=== PATIENT | male | born 1955 | race Caucasian/White ===

== ENCOUNTER → 2016-03-01 | Outpatient (CLI) | payer BC ==
[2016-03-01 17:39] LABS: Blood Urea Nitrogen 22 mg/dL (9-20); Non-African American GFR(MDRD) >60 (>60 ml/min/1.73 sqM)
== END | disposition home or self-care (01) ==
LOC: LABWHC1 17:02
PROVIDERS: ATTEND Physical Medicine & Rehabilitation
DX: Z01.812 Encounter for preprocedural laboratory examination (principal); M54.5 Low back pain; M54.16 Radiculopathy, lumbar region; M48.06 Spinal stenosis, lumbar region; Z98.890 Other specified postprocedural states; Z79.02 Long term (current) use of antithrombotics/antiplatelets; Z95.5 Presence of coronary angioplasty implant and graft
CPT/HCPCS: 36415; 82565; 84520

== ENCOUNTER 2017-08-10 10:24 | Day surgery (SDC) | payer BC ==
[2017-08-04 15:57] VITALS: BMI 27.0
[2017-08-10] MEDS ORDERED: LACTATED RINGERS 1,000 ML IV SCH (11:49)
[2017-08-10] MEDS ORDERED: LIDOCAINE 1% 20 ML VIAL (10MG/ML) FOR IV START INTRADERMA ONE (12:10)
[2017-08-10 12:12] VITALS: RESP 16; TEMP 97.9
[2017-08-10] MEDS ORDERED: PROPOFOL 10 MG/ML 20 ML VIAL IV ONE (12:32)
--- NOTE | 2017-08-10 12:51 | P.PCN ---
Date of Procedure: 08/10/17 Procedure(s) Performed: BRIEF HISTORY: Patient is a 62-year-old pleasant male, scheduled for an elective colonoscopy as a part of screening for colorectal neoplasia. PROCEDURE PERFORMED: Colonoscopy. PREOPERATIVE DIAGNOSIS: Screening for colon cancer. IV sedation per Anesthesia. PROCEDURE: After informed consent was obtained, the patient, was brought into the endoscopy unit. IV sedation was administered by Anesthesia under continuous monitoring. Digital rectal examination was normal. Initially the Olympus CF- 160 flexible video colonoscope was then inserted in the rectum, gradually advanced into the cecum without any difficulty. Careful examination was performed as the scope was gradually being withdrawn. Ileocecal valve and the appendiceal orifice were visualized and appeared normal. Prep was excellent. Mucosa of the cecum, ascending colon, transverse colon, descending colon, sigmoid colon, and rectum appeared normal. Retroflexion was performed in the rectum and no lesions were seen. The patient tolerated the procedure well. IMPRESSION: Normal-appearing colon from rectum to cecum with no evidence of colorectal neoplasia . RECOMMENDATIONS: Findings of this examination were discussed with the patient is well as his family. He was advised to have a repeat screening colonoscopy in 10 years.
[2017-08-10 13:15] VITALS: BP 130/80; PULSE 50
== END 2017-08-10 13:30 | disposition home or self-care (01) ==
LOC: ORWHC2ENDO 10:24
PROVIDERS: ATTEND Internal Medicine Gastroenterology
DX: Z12.11 Encounter for screening for malignant neoplasm of colon (principal); I25.10 Atherosclerotic heart disease of native coronary artery without angina pectoris; I10 Essential (primary) hypertension; E78.5 Hyperlipidemia, unspecified; I25.2 Old myocardial infarction; Z95.5 Presence of coronary angioplasty implant and graft; Z79.01 Long term (current) use of anticoagulants; Z79.82 Long term (current) use of aspirin; Z79.899 Other long term (current) drug therapy
CPT/HCPCS: J2704; G0121; 45378

== ENCOUNTER → 2018-02-21 | Outpatient (CLI) | payer BC ==
[2018-02-21 17:32] LABS: Albumin/Globulin Ratio 1.74 (1.20-2.10); Anion Gap 7.6 mmol/L (4.00-12.00); Calcium 8.9 mg/dL (8.7-10.3); Carbon Dioxide 26.4 mmol/L (21.6-31.8); Globulin 2.3 g/dL (1.6-3.3); LDL Cholesterol,Calculated 60.2 mg/dL (0.0-131.0); Potassium 5.1 mmol/L (3.5-5.5); Total Bilirubin 0.7 mg/dL (0.2-1.2); Total Protein 6.3 g/dL (6.2-8.2); VLDL Calculation 52.8 mg/dL (5.00-40.00)
== END | disposition home or self-care (01) ==
LOC: LABWHC1 10:13
PROVIDERS: ATTEND Internal Medicine Interventional Cardiology
DX: E78.2 Mixed hyperlipidemia (principal)
CPT/HCPCS: 36415; 80053; 80061

== ENCOUNTER → 2018-11-01 | Outpatient (CLI) | payer MEDICARE, BC ==
[2018-11-01 16:51] LABS: ALT 69 U/L (10-49); AST 43 U/L (14-35); African American GFR (CKD) 103.5 (60.0-200.0); Albumin/Globulin Ratio 1.87 (1.60-3.17); Alkaline Phosphatase 88 U/L (41-126); BUN/Creat Ratio 21.11 Ratio (12.00-20.00); Calcium 9.4 mg/dL (8.7-10.3); Carbon Dioxide 26.6 mmol/L (21.6-31.8); Chloride 104 mmol/L (96-109); Chol/HDL Ratio 5.14; Cholesterol 180 mg/dL (0-200); Globulin 2.3 g/dL (1.6-3.3); Glucose 101 mg/dL (70-110); Potassium 4.3 mmol/L (3.5-5.5); Sodium 139 mmol/L (135-145); Total Protein 6.6 g/dL (6.2-8.2)
== END | disposition home or self-care (01) ==
LOC: LABWHC1 09:42
PROVIDERS: ATTEND Internal Medicine Interventional Cardiology
DX: E78.2 Mixed hyperlipidemia (principal)
CPT/HCPCS: 36415; 80053; 80061; 83721

== ENCOUNTER → 2018-11-15 | Outpatient (CLI) | payer MEDICARE, BC ==
[2018-11-15 18:40] LABS: Chol/HDL Ratio 4.76; LDL Cholesterol,Calculated 31.4 mg/dL (0.0-131.0); VLDL Calculation 107.6 mg/dL (5.00-40.00)
== END | disposition home or self-care (01) ==
LOC: LABWHC1 11:41
PROVIDERS: ATTEND Nurse Practitioner Adult Health
DX: E78.2 Mixed hyperlipidemia (principal)
CPT/HCPCS: 36415; 80061; 84450; 84460

== ENCOUNTER → 2019-03-30 | Outpatient (CLI) | payer MEDICARE, BC ==
[2019-03-30 15:16] LABS: Basophils % (A) 0 %; Eosinophils # (A) 0.1 k/uL (0-0.7); Eosinophils % (A) 2 %; HCT 40.8 % (39.0-53.0); Lymphocytes # (A) 1.4 k/uL (1.0-4.8); Lymphocytes % (A) 29 %; MCH 32.5 pg (25.0-35.0); MCHC 34.3 g/dL (31.0-37.0); MCV 94.7 fL (80.0-100.0); Mean Platelet Volume 9.3; Monocytes # (A) 0.3 k/uL (0-1.0); Monocytes % (A) 6 %; Neutrophils # (A) 2.8 k/uL (1.3-7.7); Neutrophils % (A) 58 %; Platelet Count 150 k/uL (150-450); Poikilocytosis Slight; RBC 4.31 m/uL (4.30-5.90); RDW 14.5 % (11.5-15.5); WBC 4.9 k/uL (3.8-10.6)
[2019-03-30 18:26] LABS: African American GFR (CKD) 103.5 (60.0-200.0); Albumin 4.3 g/dL (3.80-4.90); Albumin/Globulin Ratio 2.15 (1.60-3.17); Anion Gap 4.4 mmol/L (4.00-12.00); BUN/Creat Ratio 11.11 Ratio (12.00-20.00); Calcium 9.1 mg/dL (8.7-10.3); Carbon Dioxide 29.6 mmol/L (21.6-31.8); Chol/HDL Ratio 2.69; Non-African American GFR(CKD) 89.3 (60.0-200.0); Potassium 4.3 mmol/L (3.5-5.5); Total Bilirubin 1.5 mg/dL (0.3-1.2); Total Protein 6.3 g/dL (6.2-8.2)
== END | disposition home or self-care (01) ==
LOC: LABWHC1 14:16
PROVIDERS: ATTEND Internal Medicine
DX: I10 Essential (primary) hypertension (principal); R74.8 Abnormal levels of other serum enzymes; Z12.5 Encounter for screening for malignant neoplasm of prostate; E78.2 Mixed hyperlipidemia
CPT/HCPCS: 80061; 80053; 85025; 36415; G0103

== ENCOUNTER 2020-07-27 08:16 | Emergency (ER) | payer MEDICARE, BC ==
[2020-07-27 08:20] VITALS: BP 153/78; PULSE 48; RESP 18; TEMP 98.6
[2020-07-27] MEDS ORDERED: HYDROmorphone 1 MG/ML 1 ML SYRINGE IM STA (08:35)
--- NOTE | 2020-07-27 08:51 | ED ---
Lower Extremity Injury HPI - General Chief Complaint: Extremity Injury, Lower Stated Complaint: knee injury Time Seen by Provider: 07/27/20 08:26 Source: patient, RN notes reviewed Mode of arrival: wheelchair Limitations: physical limitation - History of Present Illness Initial Comments: This a 65-year-old male presents emergency Department chief complaint of right knee pain. Patient states that he went kneel down over some rocks states he missed the kneeling pad and states he landed directly on his knee on some rocks. Patient states he hit just below his kneecap. Patient states he had instant pain states his been increasing swelling states it's too unbearable to bend at this time. Patient denies any prior surgeries denies any redness. Patient denies any fevers chills paresthesias. - Related Data Home Medications Medication Instructions Recorded Confirmed Aspirin 81 mg PO BID 12/09/13 08/10/17 Clopidogrel [Plavix] 75 mg PO DAILY 12/09/13 08/10/17 Ascorbic Acid [Vitamin C] 2,000 mg PO DAILY 08/04/17 08/10/17 Cholecalciferol [Vitamin D3] 1,000 unit PO DAILY 08/04/17 08/10/17 Fish Oil/Dha/Epa [Fish Oil 1,200 1 each PO DAILY 08/04/17 08/10/17 mg Fish Oil] Metoprolol Tartrate [Lopressor] 12.5 mg PO DAILY 08/04/17 08/10/17 Multivitamins, Thera [Multivitamin 1 tab PO DAILY 08/04/17 08/10/17 (formulary)] Rosuvastatin [Crestor] 20 mg PO Q48H 08/04/17 08/10/17 Ubidecarenone [Co Q-10] 100 mg PO DAILY 08/04/17 08/10/17 Vitamin B-12 1 tab PO DAILY 08/04/17 08/10/17 lisinopriL [Zestril] 20 mg PO DAILY 08/04/17 08/10/17 Previous Rx's Medication Instructions Recorded HYDROcodone/APAP 7.5-325MG [Hayden 1 tab PO Q6HR PRN 3 Days #12 tab 07/27/20 7.5-325] Allergies Allergy/AdvReac Type Severity Reaction Status Date / Time No Known Allergies Allergy Verified 07/27/20 08:20 Review of Systems ROS Statement: Those systems with pertinent positive or pertinent negative responses have been documented in the HPI. ROS Other: All systems not noted in ROS Statement are negative. Past Medical History Past Medical History: Coronary Artery Disease (CAD), Chest Pain / Angina, Hyperlipidemia, Hypertension, Myocardial Infarction ([place]), Osteoarthritis (OA) Additional Past Medical History / Comment(s): [place] X2 BACK PAIN., BRUISES EASILY. Last Myocardial Infarction Date:: 05/2013 History of Any Multi-Drug Resistant Organisms: None Reported Past Surgical History: Heart Catheterization With Stent Additional Past Surgical History / Comment(s): laminectomy, vasectomy, Heart Cath x2 -( total of 4 stents 3 stents in 12/2013) Past Anesthesia/Blood Transfusion Reactions: No Reported Reaction Date of Last Stent Placement:: 12/2013 Past Psychological History: No Psychological Hx Reported Smoking Status: Never smoker Past Alcohol Use History: None Reported, Occasional Past Drug Use History: None Reported - Past Family History Father Family Medical History: Diabetes Mellitus, Myocardial Infarction ([place]) Additional Family Medical History / Comment(s): of [place] at 50yrs old Mother Additional Family Medical History / Comment(s): Coritcal Basilar Ganglionic Degeneration, at 66yrs old Sister(s) Family Medical History: Congestive Heart Failure (CHF) Additional Family Medical History / Comment(s): at 66 of heart failure General Exam General appearance: alert, in no apparent distress Head exam: Present: atraumatic, normocephalic, normal inspection Respiratory exam: Present: normal lung sounds bilaterally. Absent: respiratory distress, wheezes, rales, rhonchi, stridor Cardiovascular Exam: Present: regular rate, normal rhythm, normal heart sounds. Absent: systolic murmur, diastolic murmur, rubs, gallop, clicks Extremities exam: Present: other (Right knee there is mild swelling, no erythema there is significant swelling inferior to the patella, neurovascular intact) Skin exam: Present: warm, dry, intact, normal color. Absent: rash Course Vital Signs 07/27/20 08:17 Temperature 98.6 F Pulse Rate 48 L Respiratory 18 Rate Blood Pressure 153/78 O2 Sat by Pulse 98 Oximetry Medical Decision Making - Medical Decision Making X-ray shows evidence of joint effusion, possible prepatellar bursitis versus contusion. Patient will be provided pain control, advised to elevate ice follow-up with orthopedics and return for any worsening change in symptoms. Disposition Clinical Impression: Effusion, right knee, Contusion of right knee Disposition: HOME SELF-CARE Condition: Stable Instructions (If sedation given, give patient instructions): Swollen Knee Joint (ED), Knee Pain (ED) Additional Instructions: Please return to the Emergency Department if symptoms worsen or any other concerns. Prescriptions: HYDROcodone/APAP 7.5-325MG [Hayden 7.5-325] 1 tab PO Q6HR PRN 3 Days #12 tab PRN Reason: Pain Is patient prescribed a controlled substance at d/c from ED?: Yes When asked, does pt state using other controlled substances?: No If prescribed controlled substance>3 days was MAPS reviewed?: Prescribed <3 Days If opioid is for acute pain is fill amount 7 days or less?: Yes If Rx opioid, was Start Talking consent form obtained?: Yes Referrals: Jes Beard MD [Primary Care Provider] - 1-2 days Mani Davies MD [STAFF PHYSICIAN] - 1-2 days Time of Disposition: 10:00
--- NOTE | 2020-07-27 09:43 | XR ---
EXAMINATION TYPE: XR knee complete RT DATE OF EXAM: 07/27/2020 COMPARISON: NONE HISTORY: 65-year-old male pain after kneeling on a rock. TECHNIQUE: 3 views FINDINGS: Moderate joint effusion. Prominent anterior soft tissue swelling especially overlying the t ibial tuberosity and distal patellar tendon but also extending along the entire prepatellar region. N o acute fracture, subluxation, dislocation. IMPRESSION: 1. Moderate knee joint effusion. No acute osseous abnormality seen. 2. In addition, there is prominent prepatellar soft tissue swelling, possible contusion or prepatella r bursitis. Soft tissue swelling is even greater overlying the tibial tuberosity and distal patellar tendon. Correlate to exclude underlying injury to the patellar tendon insertion or underlying deep in frapatellar bursitis. MRI can be considered.
== END 2020-07-27 10:19 | disposition home or self-care (01) ==
LOC: EC 08:16
DX: S80.01XA Contusion of right knee, initial encounter (principal); I10 Essential (primary) hypertension; E78.5 Hyperlipidemia, unspecified; I25.2 Old myocardial infarction; M19.90 Unspecified osteoarthritis, unspecified site; I25.10 Atherosclerotic heart disease of native coronary artery without angina pectoris; Z79.82 Long term (current) use of aspirin; W22.8XXA Striking against or struck by other objects, initial encounter
CPT/HCPCS: 73562; 99283; 96372; J1170

== ENCOUNTER → 2020-07-30 | Outpatient (CLI) | payer MEDICARE, BC ==
--- NOTE | 2020-07-30 20:25 | CT ---
EXAMINATION TYPE: CT knee RT wo con DATE OF EXAM: 07/30/2020 COMPARISON: MR right knee same date, plain film 07/27/2020 HISTORY: Right knee pain since 07/25/20 after knee gave out and patient fell on stones. CT DLP: 265 mGycm Automated exposure control for dose reduction was used. Helical imaging through the right knee. FINDINGS: There is no fracture or dislocation. Bone mineralization, joint spaces and alignment are maintained. There is knee joint effusion. Abnormal soft tissue present in the level of the patellar tendon insert ion, some local fluid signal is present, correlate for contusion versus phlegmon. Abnormal attenuatio n also noted within the patellar tendon which may be posttraumatic. Subcutaneous edema changes presen t. There is an enthesophyte at insertion of the quadriceps tendon. Marginal spurring present at the m edial compartment, patellofemoral joint. Osteoporotic vascular calcifications present along the popliteal artery, tibioperoneal trunk IMPRESSION: SOFT TISSUE INJURY DESCRIBED. JOINT EFFUSION. OSTEOARTHRITIS.
--- NOTE | 2020-07-30 20:35 | MR ---
EXAMINATION TYPE: MR knee RT wo con DATE OF EXAM: 07/30/2020 COMPARISON: CT knee same day, right knee plain film 07/27/2020 HISTORY: Rt knee pain, swelling, unable to bend since 07/25/20 after knee giving out and falling on st ones, concern for infection. TECHNIQUE: Multiplanar, multisequence imaging of the right knee is performed without IV contrast. FINDINGS: MEDIAL MENISCUS: The undersurface of the posterior horn of the medial meniscus on sagittal image #11 shows some linear increased signal extending to the echotexture surface, there is somewhat diffuse ir regular signal present.. Some underlying mucoid degenerative signal may be present. LATERAL MENISCUS: Posterior horn of lateral meniscus shows some linear increased signal with question able extension to the articular surface, sagittal image #25 of series 301, Some underlying mucoid deg enerative signal may be present. CRUCIATE LIGAMENTS: The anterior and posterior cruciate ligaments are intact and unremarkable. COLLATERAL LIGAMENTS: The medial collateral ligament and lateral collateral ligament complex are inta ct and unremarkable. EXTENSOR MECHANISM: Patellar tendon shows abnormal thickening and increased signal, no corey tear. Th ere is enthesophyte at the insertion of the patellar tendon EFFUSION: There is a joint effusion present POPLITEAL CYST: No popliteal/dalton cyst. TRICOMPARTMENT SPACES: Maintained CARTILAGE: Grade 2 to grade III chondromalacia in the medial compartment, posterior patella BONE MARROW SIGNAL: Within the proximal tibia there is intermediate signal on T1, increased signal in T2-weighted sequences along the metaphysis anteriorly, sagittal image #22 shows some linear intermed iate signal on T1, increased signal in T2-weighted sequences extending from the anterior tibial plate au towards the metaphysis, findings may represent a hairline fracture, microtrabecular fractures with bone marrow edema, additional linear abnormalities are noted, sagittal image 26 similar appearance. OTHER: Subcutaneous edema changes are present. In the soft tissues anterior to the patellar tendon i nsertion there is abnormal soft tissue thickening and abnormal increased signal in T2-weighted sequen mekhi, possible local phlegmon or ecchymosis.. IMPRESSION: Posttraumatic changes including probable microtrabecular fractures, bone contusion, soft tissue injur y to the patellar tendon and soft tissues anterior to the patellar tendon. Joint effusion. Difficult to exclude meniscal tears, phlegmon anterior to the patellar tendon versus ecchymosis, edema
== END | disposition home or self-care (01) ==
LOC: RADMRIMAIN 13:38
PROVIDERS: ATTEND Orthopaedic Surgery
DX: M17.11 Unilateral primary osteoarthritis, right knee (principal); S83.206A Unspecified tear of unspecified meniscus, current injury, right knee, initial encounter

== ENCOUNTER → 2021-02-11 | Outpatient (CLI) | payer MEDICARE, BC ==
[2021-02-11 19:24] LABS: HDL Cholesterol 33.1 mg/dL (40.00-60.00)
[2021-02-11 19:42] LABS: Chol/HDL Ratio 5.8 Ratio; LDL Cholesterol,Direct Reflex 89.1 mg/dL (0.00-129.00)
== END | disposition home or self-care (01) ==
LOC: LABWHC1 11:31
PROVIDERS: ATTEND Nurse Practitioner Adult Health
DX: E78.2 Mixed hyperlipidemia (principal)
CPT/HCPCS: 36415; 80061; 83721; 84450; 84460

== ENCOUNTER → 2021-07-09 | Outpatient (CLI) | payer MEDICARE, BC ==
[2021-07-09 23:22] LABS: ALT 89 U/L (10-49); AST 55 U/L (14-35); African American GFR (CKD) 91.8 (60.0-200.0); Albumin 4.7 g/dL (3.8-4.9); Albumin/Globulin Ratio 1.61 (1.60-3.17); Alkaline Phosphatase 79 U/L (41-126); BUN/Creat Ratio 18.51 Ratio (12.00-20.00); Blood Urea Nitrogen 18.2 mg/dL (9.0-27.0); Calcium 9.8 mg/dL (8.7-10.3); Carbon Dioxide 25.8 mmol/L (20.0-27.5); Chloride 97 mmol/L (96-109); Chol/HDL Ratio 5.12 Ratio; Glucose 102 mg/dL (70-110); Non-African American GFR(CKD) 79.2 (60.0-200.0); Potassium 4.2 mmol/L (3.5-5.5); Sodium 134 mmol/L (135-145); Total Protein 7.7 g/dL (6.2-8.2)
== END | disposition home or self-care (01) ==
LOC: LABWHC1 10:01
PROVIDERS: ATTEND Nurse Practitioner Adult Health
DX: I10 Essential (primary) hypertension (principal); E78.2 Mixed hyperlipidemia
CPT/HCPCS: 36415; 80053; 80061

== ENCOUNTER → 2022-03-12 | Outpatient (CLI) | payer MEDICARE, BC ==
[2022-03-12 18:47] LABS: Basophils # (A) 0.04 X 10*3/uL (0.00-0.10); Basophils % (A) 0.6 %; Eosinophils # (A) 0.16 X 10*3/uL (0.04-0.35); Eosinophils % (A) 2.4 %; HCT 45.2 % (39.6-50.0); HGB 14.7 g/dL (13.0-17.0); Immature Grans, Automated 0.3 %; Lymphocytes # (A) 1.79 X 10*3/uL (0.90-5.00); Lymphocytes % (A) 26.5 %; MCH 31.3 pg (27.0-32.0); MCHC 32.5 g/dL (32.0-37.0); MCV 96.2 fL (80.0-97.0); Monocytes # (A) 0.58 X 10*3/uL (0.20-1.00); Monocytes % (A) 8.6 %; NRBC Per 100 WBC 0 /100 WBCS (0.0-0.0); Neutrophils # (A) 4.16 X 10*3/uL (1.80-7.70); Neutrophils % (A) 61.6 %; Platelet Count 209 X 10*3/uL (140-440); RDW 13.2 % (11.5-14.5); WBC 6.75 X 10*3/uL (4.50-10.00)
[2022-03-12 18:56] LABS: Albumin 4.7 g/dL (3.8-4.9); Albumin/Globulin Ratio 1.61 (1.60-3.17); Anion Gap 10.5 mmol/L (10.00-18.00); BUN/Creat Ratio 14.87 Ratio (12.00-20.00); Blood Urea Nitrogen 16.8 mg/dL (9.0-27.0); Calcium 9.9 mg/dL (8.7-10.3); Carbon Dioxide 29.4 mmol/L (20.0-27.5); Globulin 2.9 g/dL (1.6-3.3); Non-African American GFR(CKD) 66.4 (60.0-200.0); Potassium 4.2 mmol/L (3.5-5.5); Total Bilirubin 0.6 mg/dL (0.30-1.20); Total Protein 7.7 g/dL (6.2-8.2)
== END | disposition home or self-care (01) ==
LOC: LABWHC1 08:56
PROVIDERS: ATTEND Internal Medicine Interventional Cardiology
DX: Z00.00 Encounter for general adult medical examination without abnormal findings (principal); E78.2 Mixed hyperlipidemia
CPT/HCPCS: 36415; 80053; 85025

== ENCOUNTER → 2022-03-19 | Outpatient (CLI) | payer MEDICARE, BC ==
[2022-03-19 15:42] LABS: LDL Cholesterol,Calculated 75.9 mg/dL (0.0-131.0)
== END | disposition home or self-care (01) ==
LOC: LABWHC1 09:10
PROVIDERS: ATTEND Internal Medicine Interventional Cardiology
DX: Z00.00 Encounter for general adult medical examination without abnormal findings (principal); E78.2 Mixed hyperlipidemia; Z53.9 Procedure and treatment not carried out, unspecified reason
CPT/HCPCS: 80061; G0103

== ENCOUNTER → 2022-12-16 | Outpatient (CLI) | payer MEDICARE, BC ==
[2022-12-16 16:21] LABS: ALT 38 U/L (10-49); AST 31 U/L (14-35); Albumin 4.7 d/dL (3.8-4.9); Albumin/Globulin Ratio 1.52 Ratio (1.60-3.17); Alkaline Phosphatase 72 U/L (41-126); Blood Urea Nitrogen 17.9 mg/dL (9.0-27.0); Calcium 9.7 mg/dL (8.7-10.3); Carbon Dioxide 29.7 mmol/L (21.6-31.8); Chloride 99 mmol/L (96-109); Chol/HDL Ratio 5.16 Ratio; Globulin 3.1 d/dL (1.6-3.3); Glucose 98 mg/dL (70-110); Potassium 4.5 mmol/L (3.5-5.5); Sodium 137 mmol/L (135-145); Total Bilirubin 0.6 mg/dL (0.3-1.2); Total Protein 7.8 d/dL (6.2-8.2)
== END | disposition home or self-care (01) ==
LOC: LABWHC1 09:53
PROVIDERS: ATTEND Internal Medicine Interventional Cardiology
DX: E78.2 Mixed hyperlipidemia (principal)
CPT/HCPCS: 36415; 80053; 80061; 83721

== ENCOUNTER → 2023-06-16 | Outpatient (CLI) | payer MEDICARE, BC ==
[2023-06-16 14:50] LABS: ALT 62 U/L (10-49); AST 42 U/L (14-35); Albumin 4.8 g/dL (3.8-4.9); Alkaline Phosphatase 66 U/L (41-126); Blood Urea Nitrogen 21.4 mg/dL (9.0-27.0); Calcium 9.8 mg/dL (8.7-10.3); Chloride 100 mmol/L (96-109); Chol/HDL Ratio 4.68 Ratio; Glucose 103 mg/dL (70-110); LDL Cholesterol,Calculated 89.8 mg/dL (0.0-131.0); Potassium 4.3 mmol/L (3.5-5.5); Sodium 138 mmol/L (135-145); Total Bilirubin 0.6 mg/dL (0.3-1.2); Total Protein 7.8 g/dL (6.2-8.2)
== END | disposition home or self-care (01) ==
LOC: LABWHC1 09:06
PROVIDERS: ATTEND Internal Medicine Interventional Cardiology
DX: E78.2 Mixed hyperlipidemia (principal)
CPT/HCPCS: 36415; 80053; 80061

== ENCOUNTER → 2023-12-09 | Outpatient (CLI) | payer MEDICARE ==
--- NOTE | 2023-12-09 13:48 | MR ---
EXAMINATION TYPE: MR knee RT wo con DATE OF EXAM: 12/09/2023 COMPARISON: MRI 07/30/2020 and radiograph 12/02/2023 HISTORY: 68-year-old male M25.561, right knee pain. TECHNIQUE: Multiplanar, multisequence imaging of the right knee is performed without IV contrast. FINDINGS: Some similar degenerative signal of the ACL which otherwise remains intact. PCL and MCL are intact. Some similar intermediate signal within the femoral attachment of the LCL proper and popliteus tendon . LCL complex is otherwise intact. There is a horizontal tear which extends through the anterior horn and body of the lateral meniscus. This is partial thickness along the posterior horn. 6 mm parameniscal cyst cyst at the anterior root is new. There is moderate irregular cartilage loss along the mid weightbearing aspect of the lateral compartm ent. Oblique undersurface tear along the posterior horn of the medial meniscus appears relatively similar. There is mild diffuse thinning of medial compartment articular cartilage volume. New full-thickness cartilage loss superior mid aspect of the trochlear groove measuring 1.0 cm cranio caudal by 0.9 cm wide. Otherwise, there is mild superficial cartilage irregularity along the patellar articular cartilage. The extensor mechanism is intact. Chronic thickening of the patellar tendon insertion. Enthesopathy a t both the base of the patella at the quadriceps insertion and at the tibial tuberosity. Mild heterogeneous signal at the quadriceps insertion suggesting tendinosis. The previous abnormal signal intensity in the patellar tendon has resolved. Residual mild anterior soft tissue swelling also improved from prior. The previous effusion in the de ep infrapatellar bursa has resolved. There is a moderate knee joint effusion with mild chronic. No sizable Owens's cyst. IMPRESSION: 1. Progression in horizontal tear extending throughout the lateral meniscus. This is a partial thickn ess inner margin tear in the posterior horn. A 6 mm parameniscal cyst at the anterior root is new. 2. Moderate irregular cartilage loss along the mid weightbearing aspect of the lateral compartment, n ew from 2020. 3. Similar oblique undersurface tear posterior horn of the medial meniscus. 4. New 10 x 9 mm area of full-thickness cartilage loss along the superior trochlear groove within the patellofemoral compartment. 5. Mild insertional quadriceps tendinosis. Now chronic thickening/tendinosis at the patellar tendon i nsertion. The previous abnormal signal within the patellar tendon has resolved. 6. Chronic versus low-grade sprain femoral attachment LCL proper and popliteus tendinosis. 7. Moderate knee joint effusion with mild chronic synovitis. [facility], , 12/09/2023 1:46 PM
== END | disposition home or self-care (01) ==
LOC: RADMRIMAIN 11:03
PROVIDERS: ATTEND Orthopaedic Surgery

== ENCOUNTER → 2024-01-11 | Outpatient (CLI) | payer MEDICARE ==
[2024-01-12 02:33] LABS: Basophils # (A) 0.04 X 10*3/uL (0.00-0.10); Basophils % (A) 0.5 %; Eosinophils % (A) 1.1 %; HCT 44.8 % (39.6-50.0); HGB 15.4 g/dL (13.0-17.0); Lymphocytes # (A) 2.22 X 10*3/uL (0.90-5.00); Lymphocytes % (A) 25.2 %; MCH 32.1 pg (27.0-32.0); MCHC 34.4 g/dL (32.0-37.0); MCV 93.3 FL (80.0-97.0); Mean Platelet Volume 11.1 FL (9.5-12.2); Monocytes # (A) 0.73 X 10*3/uL (0.20-1.00); Monocytes % (A) 8.3 %; NRBC Per 100 WBC 0 X 10*3/uL (0.00-0.01); Neutrophils # (A) 5.69 X 10*3/uL (1.80-7.70); Neutrophils % (A) 64.6 %; Platelet Count 215 X 10*3/uL (140-440); RDW 12.7 % (11.5-14.5); WBC 8.81 X 10*3/uL (4.50-10.00)
[2024-01-12 03:40] LABS: Anion Gap 14.8 mmol/L (4.00-12.00); Carbon Dioxide 25.2 mmol/L (21.6-31.8); Potassium 3.7 mmol/L (3.5-5.5)
== END | disposition home or self-care (01) ==
LOC: LABPAT 15:41
PROVIDERS: ATTEND Orthopaedic Surgery
DX: Z01.812 Encounter for preprocedural laboratory examination (principal); M23.91 Unspecified internal derangement of right knee
CPT/HCPCS: 80051; 85025

== ENCOUNTER 2024-01-26 11:26 | Day surgery (SDC) | payer MEDICARE ==
--- NOTE | 2024-01-25 23:53 | HP ---
HISTORY AND PHYSICAL DATE OF SURGERY: 01/26/2024. HISTORY OF PRESENT ILLNESS: Olman Umanzor is a 68-year-old patient seen with progressive right knee pain. Options for treatment were discussed. He elected to proceed with arthroscopy. Consent was obtained. Cardiac clearance provided by Dr. Thorpe. PAST MEDICAL HISTORY: Cardiovascular disease, hypertension, hyperlipidemia. PAST SURGICAL HISTORY: Spine surgery. DAILY MEDICATIONS: 1. Amlodipine. 2. Lisinopril. 3. Metoprolol. 4. Ibuprofen. 5. Rosuvastatin. ALLERGIES: None. SOCIAL HISTORY: He denies tobacco use. PHYSICAL EVALUATION OF THE RIGHT KNEE: Range of motion is -2 to 120 degrees. Mild effusion. Tenderness, medial and lateral joint lines. Positive medial Ignacio's. Positive lateral Ignacio's. Ligaments stable. Hip rotation without pain. Distal neurovascular exam intact. IMAGING STUDIES: Radiographs of the right knee revealed mild osteoarthritis. MRI of the right knee revealed meniscal tears and osteochondral defect of the trochlea. IMPRESSION: 1. Internal derangement of right knee with medial and lateral meniscal tears. 2. Osteochondral defect, trochlear groove, right knee. 3. Hypertension. 4. Hyperlipidemia. PLAN: Right knee arthroscopy with partial medial and lateral meniscectomy, microfracture and debridement. MMODL / IJN: [id number] /
[~2024-01-26 11:26] MED LIST: HYDROmorphone 0.5 MG/0.5 ML SYRINGE IVP PRN
[2024-01-26] MEDS: IV FLUID CONTINUATION 1,000 ML IV ONE (12:13)
[2024-01-26] MEDS: LACTATED RINGERS 1,000 ML IV SCH (12:15)
[2024-01-26] MEDS: LIDOCAINE 1% (10MG/ML) FOR IV START INTRADERMA STA (12:15)
[2024-01-26] MEDS: ONDANSETRON 4 MG/2 ML VIAL IVP STA (12:25)
[2024-01-26] MEDS: DEXAMETHASONE SOD PHOSPHATE 4 MG/ML 1 ML VIAL IVP STA (12:26)
[2024-01-26] MEDS: BUPIVACAINE (PF) 0.25% 30 ML VIAL MISCELLANE ONE ×2 (13:26→14:09)
[2024-01-26] MEDS ORDERED: fentaNYL (PF) 50 MCG/ML 2 ML AMP ONE (13:31)
[2024-01-26] MEDS ORDERED: LIDOCAINE 1% INJ 10MG/ML (20 ML MDV) ONE (13:31)
[2024-01-26] MEDS ORDERED: PROPOFOL 10 MG/ML 20 ML VIAL IV ONE (13:31)
[2024-01-26] MEDS ORDERED: MIDAZOLAM 2 MG/2 ML VIAL ONE (13:31)
[2024-01-26] MEDS ORDERED: KETOROLAC 15 MG/ML 1 ML VIAL ONE (13:31)
[2024-01-26 14:24] VITALS: TEMP 96.8
--- NOTE | 2024-01-26 14:27 | P.OP ---
Date of Procedure: 01/26/24 Preoperative Diagnosis: Internal derangement right knee Postoperative Diagnosis: 1. Tear medial and lateral meniscus right knee 2. Grade IV chondromalacia femoral sulcus right knee 3. Reactive synovitis medial, lateral and suprapatellar compartments right knee Procedure(s) Performed: 1. Arthroscopic partial medial and lateral meniscectomy right knee 2. Arthroscopic microfracture femoral sulcus right knee 3. Arthroscopic partial synovectomy medial, lateral and suprapatellar compartments right knee Anesthesia: GETA, local Surgeon: Michael Carlson Estimated Blood Loss (ml): 9 Pathology: none sent Condition: stable Disposition: PACU Indications for Procedure: 68-year-old gentleman seen with progressive right knee pain. After having treatment options discussed, he elected to proceed with arthroscopy. Operative Findings: See description of procedure Description of Procedure: Patient was taken to the operative suite. Patient underwent a general anesthetic by the department of anesthesia. Patient was given preoperative antibiotics. The right lower extremity was placed in a well-padded arthroscopic leg cuevas. The right leg was prepped and draped in the normal sterile orthopedic fashion. A lateral parapatellar and suprapatellar incision was made. Trochars were inserted. Arthroscopy was initiated. Suprapatellar pouch revealed diffuse thick reactive synovitis. The patellofemoral joint appeared to articulate congruently. There was grade II chondromalacia of the patella and grade III/IV chondromalacia changes of the femoral sulcus with large osteochondral flap tears present. The scope was guided into the medial gutter. No loose bodies or plica were identified the scope was then guided into the medial compartment. A medial parapatellar incision was made. Trocar inserted followed by probe. There was a tear involving the posterior horn medial meniscus. There were grade II chondromalacia changes along the medial femoral condyle without any evidence for significant osteochondral tears. There was some thick reactive synovitis anteriorly. I performed a partial medial meniscectomy getting down to stable meniscal tissue. I performed a partial synovectomy decompressing the reactive synovitis. The residual meniscus was probed and was found to be stable. There was good decompression of the synovitis present. Scope and probe were then guided into the intercondylar notch. Cruciates were identified, probed and found to be stable. The scope and probe were then guided into lateral compartment. Was a complex tear involving the anterior mid body and posterior horns of the lateral meniscus. There was grade II chondromalacia changes lateral compartment without significant tears. There was thick reactive synovitis anteriorly. I performed a partial lateral meniscectomy getting down to stable meniscal tissue. I performed a partial synovectomy decompressing the reactive synovitis. The residual meniscus was stable. There was good decompression of the synovitis. The scope was in guided back into the suprapatellar compartment. I introduced a motorized shaver into the suprapatellar compartment. I debrided some piecemeal fragments of meniscus I encountered. I performed a partial synovectomy. I performed a chondroplasty of the femoral sulcus getting down to stable osteochondral tissue. I did note an area of grade IV chondromalacia/exposed bone in the femoral sulcus measuring about 2 x 2 cm central area femoral sulcus. I introduced a microfracture awl and I performed to separate microfractures to the area of exposed bone in the femoral sulcus penetrating the bone at both sites with resultant bleeding at both microfracture sites. The residual osteochondral surface was probed and was found to be stable. There was good decompression of the synovitis. I took one more look around the entire knee, no residual debris. Instruments were now removed from the joint. The joint was infiltrated with .25% Marcaine. Steri- Strips were applied to the portal sites. Sterile dressings were applied. The patient was placed into a ANABELL hose. No tourniquet was utilized. The patient was awakened, transferred to a bed and taken to recovery stable satisfactory condition.
[2024-01-26 14:58] VITALS: RESP 16
[2024-01-26 15:30] VITALS: BP 133/78; PULSE 59
== END 2024-01-26 16:22 | disposition home or self-care (01) ==
LOC: OR 11:26
PROVIDERS: ATTEND Orthopaedic Surgery
DX: S83.271A Complex tear of lateral meniscus, current injury, right knee, initial encounter (principal); S83.241A Other tear of medial meniscus, current injury, right knee, initial encounter; M17.11 Unilateral primary osteoarthritis, right knee; M94.261 Chondromalacia, right knee; M65.861 Other synovitis and tenosynovitis, right lower leg; M21.861 Other specified acquired deformities of right lower leg; I11.9 Hypertensive heart disease without heart failure; I25.10 Atherosclerotic heart disease of native coronary artery without angina pectoris; Z95.5 Presence of coronary angioplasty implant and graft; E78.2 Mixed hyperlipidemia; Z79.82 Long term (current) use of aspirin; Z79.899 Other long term (current) drug therapy; Z87.891 Personal history of nicotine dependence; X58.XXXA Exposure to other specified factors, initial encounter
CPT/HCPCS: 29880; 29879; 29876; J1100; J0690; J2405; J0665

== ENCOUNTER → 2024-04-26 | Day surgery (SDC) | payer MEDICARE ==
--- NOTE | 2024-04-25 20:24 | P.GSHP ---
History of Present Illness H&P Date: 04/25/24 Chief Complaint: Poor urinary stream The patient is a 68-year-old white male with a 2-year history of obstructive voiding symptoms. Specifically, he reports a weak urinary stream, urinary frequency, hesitancy, and intermittency. Urinary flow studies show a weak urinary stream with incomplete bladder emptying. He is experiencing these symptoms despite taking tamsulosin 0.8 mg daily. Cystoscopy shows bilobar BPH. He has elected to undergo UroLift implants. - Cardiovascular Cardiovascular: Reports high blood pressure - Genitourinary (Male) Genitourinary: Reports as per HPI Past Medical History Past Medical History: Coronary Artery Disease (CAD), Chest Pain / Angina, Hyperlipidemia, Hypertension, Myocardial Infarction ([place]), Osteoarthritis (OA), P rostate Disorder Additional Past Medical History / Comment(s): [place] X2 BACK PAIN., BRUISES EASILY. BPH Last Myocardial Infarction Date:: 05/2013 History of Any Multi-Drug Resistant Organisms: None Reported Past Surgical History: Back Surgery, Heart Catheterization With Stent, Orthopedic Surgery Additional Past Surgical History / Comment(s): laminectomy, vasectomy, Heart Cath x2 -( total of 4 stents 3 stents in 12/2013) menisicus repair rt knee Past Anesthesia/Blood Transfusion Reactions: No Reported Reaction Date of Last Stent Placement:: 12/2013 Smoking Status: Never smoker - Past Family History Father Family Medical History: Diabetes Mellitus, Myocardial Infarction ([place]) Additional Family Medical History / Comment(s): of [place] at 50yrs old Mother Additional Family Medical History / Comment(s): Coritical Basilar Ganglionic Degeneration, at 66yrs old Sister(s) Family Medical History: Congestive Heart Failure (CHF) Additional Family Medical History / Comment(s): at 66 of heart failure Medications and Allergies Home Medications Medication Instructions Recorded Confirmed Type Metoprolol Tartrate [Lopressor] 12.5 mg PO DAILY 08/04/17 04/03/24 History Rosuvastatin [Crestor] 20 mg PO DAILY 08/04/17 04/03/24 History Fenofibrate 160 mg PO DAILY 01/24/24 04/24/24 History Lisinopril-Hctz 20-25 mg 1 tab PO DAILY 01/24/24 04/03/24 History [Zestoretic -] amLODIPine BESYLATE 5 mg PO HS 01/24/24 04/03/24 History Aspirin [Adult Low Dose Aspirin EC] 81 mg PO HS 04/03/24 04/24/24 History Unk Fish Oil 1 tab PO DAILY 04/24/24 04/24/24 History Unk Multi Vitamin 1 tab PO DAILY 04/24/24 04/24/24 History Allergies Allergy/AdvReac Type Severity Reaction Status Date / Time No Known Allergies Allergy Verified 04/24/24 11:39 Surgical - Exam - General well developed, well nourished, no distress - Respiratory normal respiratory effort - Abdomen Abdomen: soft, non tender, no guarding, no rigid, no rebound - Rectum Rectum: normal sphincter tone, no masses, other (Prostate mildly enlarged and smooth) - Psychiatric oriented to time, oriented to person, oriented to place, speech is normal, memory intact Assessment and Plan (1) Benign prostatic hyperplasia with lower urinary tract symptoms Status: Acute Code(s): N40.1 - BENIGN PROSTATIC HYPERPLASIA WITH LOWER URINARY TRACT SYMP SNOMED Code(s): 340867090 Plan: Cystoscopy with UroLift implants. The procedure has been reviewed in detail with the patient. He has been made aware of potential risks, which include anesthesia, bleeding, infection, postoperative urinary retention, and persistent voiding symptoms.
[~2024-04-26] MED LIST changes: +LACTATED RINGERS 1,000 ML IV SCH; +LIDOCAINE 1% (10MG/ML) FOR IV START INTRADERMA PRN; +LIDOCAINE 1% INJ 10MG/ML (20 ML MDV) ONE; +MIDAZOLAM 2 MG/2 ML VIAL IV PRN; +MIDAZOLAM 2 MG/2 ML VIAL ONE; +PROPOFOL 10 MG/ML 20 ML VIAL IV ONE; +fentaNYL (PF) 50 MCG/ML 2 ML AMP IVP PRN; +fentaNYL (PF) 50 MCG/ML 2 ML AMP ONE
[2024-04-26] MEDS: IV FLUID CONTINUATION 1,000 ML IV ONE ×3 (06:32→12:25)
[2024-04-26] MEDS: ONDANSETRON 4 MG/2 ML VIAL IVP ONE (06:53)
[2024-04-26] MEDS: DEXAMETHASONE SOD PHOSPHATE 4 MG/ML 1 ML VIAL IV ONE (06:53)
--- NOTE | 2024-04-26 08:15 | P.OP ---
Date of Procedure: 04/26/24 Preoperative Diagnosis: BPH with obstruction Postoperative Diagnosis: Same Procedure(s) Performed: Cystoscopy with UroLift implants (6) Anesthesia: ARMINDAA Surgeon: Preston Sauceda Estimated Blood Loss (ml): 10 IV fluids (ml): 300 Pathology: none sent Condition: stable Disposition: PACU Indications for Procedure: The patient is a 68-year-old white male with a 2-year history of obstructive voiding symptoms. Specifically, he reports a weak urinary stream, urinary frequency, hesitancy, and intermittency. Urinary flow studies show a weak urinary stream with incomplete bladder emptying. He is experiencing these symptoms despite taking tamsulosin 0.8 mg daily. Cystoscopy shows bilobar BPH. He has elected to undergo UroLift implants. Operative Findings: Open prostatic fossa achieved. Description of Procedure: The patient was taken in the operating room and placed in the dorsolithotomy position. The external genitalia was prepped and draped sterilely. The 30 lens was used to introduce the Stortz cystoscopic sheath through the urethra and into the bladder under direct vision. The anterior urethra appeared normal. The prostatic urethra showed evidence of complete obstruction with a bilobar configuration. Both ureteral orifice his were of normal anatomic location and configuration. No tumors or foreign bodies were seen. The bladder was moderately trabeculated. Urolift implants were placed at the 10:00 and 2:00 positions approximately 1 cm distal to the vesical neck. 2 additional Urolift implants were placed at the 9:00 and 3:00 positions at the level of the verumontanum. 2 additional implants were placed at the 11:00 and 1:00 positions at the mid gland level to achieve an open prostatic fossa. Hemostasis was adequate. The bladder was emptied and the cystoscope removed. The patient tolerated the procedure well was taken to the recovery room in stable condition.
[2024-04-26 08:21] VITALS: TEMP 97.1
[2024-04-26 12:33] VITALS: RESP 16
[2024-04-26 14:13] VITALS: BP 165/88; PULSE 56
== END | disposition home or self-care (01) ==
LOC: OR 06:16
PROVIDERS: ATTEND Urology
DX: N40.1 Benign prostatic hyperplasia with lower urinary tract symptoms (principal); N13.8 Other obstructive and reflux uropathy; M19.90 Unspecified osteoarthritis, unspecified site; I25.2 Old myocardial infarction; I25.10 Atherosclerotic heart disease of native coronary artery without angina pectoris; I10 Essential (primary) hypertension; E78.5 Hyperlipidemia, unspecified; Z79.82 Long term (current) use of aspirin; Z79.899 Other long term (current) drug therapy
CPT/HCPCS: 52441; 52442; L8699; J2250; J1100; J0690; J2405; J2003; J3010; J2704

== ENCOUNTER 2024-04-27 17:25 | Emergency (ER) | payer MEDICARE ==
[2024-04-27 20:44] LABS: ALT 53 U/L (4-49); AST 43 U/L (17-59); African American GFR (CKD) >90 (>60 ml/min/1.73 sqM); Albumin 4.6 g/dL (3.5-5.0); Alkaline Phosphatase 73 U/L (38-126); Anion Gap 8 mmol/L; Blood Urea Nitrogen 17 mg/dL (9-20); Calcium 9.6 mg/dL (8.4-10.2); Carbon Dioxide 30 mmol/L (22-30); Chloride 98 mmol/L (98-107); Glucose 103 mg/dL (74-99); Non-African American GFR(CKD) 81 (>60 ml/min/1.73 sqM); Potassium 3.3 mmol/L (3.5-5.1); Sodium 136 mmol/L (137-145); Total Bilirubin 0.7 mg/dL (0.2-1.3); Total Protein 7.6 g/dL (6.3-8.2)
[2024-04-27 20:53] LABS: Basophils % (A) 0 %; Eosinophils % (A) 0 %; HCT 42.1 % (39.0-53.0); HGB 14.4 gm/dL (13.0-17.5); Lymphocytes % (A) 10 %; MCH 31.6 pg (25.0-35.0); MCHC 34.3 g/dL (31.0-37.0); MCV 92.1 fL (80.0-100.0); Mean Platelet Volume 9.4; Monocytes # (A) 0.7 k/uL (0-1.0); Monocytes % (A) 6 %; Neutrophils # (A) 8.7 k/uL (1.3-7.7); Neutrophils % (A) 82 %; Platelet Count 195 k/uL (150-450); RBC 4.57 m/uL (4.30-5.90); RDW 13.4 % (11.5-15.5); WBC 10.5 k/uL (3.8-10.6)
[2024-04-27 21:33] VITALS: RESP 18
[2024-04-27] MEDS: MORPHINE SULFATE 4 MG/ML SYRINGE IVP STA (21:33)
--- NOTE | 2024-04-27 21:37 | ED ---
General Adult HPI - General Chief complaint: Urogenital Stated complaint: cath issue Time Seen by Provider: 04/27/24 18:50 Source: patient Mode of arrival: ambulatory Limitations: no limitations - History of Present Illness Initial comments: 68-year-old male presenting with chief complaint of abdominal pain. Patient had a UroLift procedure with Dr. Sauceda yesterday. This afternoon he had sudden onset severe cramping in the abdomen. States that it felt like his catheter was not draining. He is still having bowel movements. No vomiting or nausea. No fever. Urine is blood-tinged. - Related Data Home Medications Medication Instructions Recorded Confirmed Metoprolol Tartrate [Lopressor] 12.5 mg PO DAILY 08/04/17 04/26/24 Rosuvastatin [Crestor] 20 mg PO DAILY 08/04/17 04/26/24 Fenofibrate 160 mg PO DAILY 01/24/24 04/26/24 Lisinopril-Hctz 20-25 mg 1 tab PO DAILY 01/24/24 04/26/24 [Zestoretic 20-25] amLODIPine BESYLATE 5 mg PO HS 01/24/24 04/26/24 Aspirin [Adult Low Dose Aspirin EC] 81 mg PO HS 04/03/24 04/26/24 Unk Fish Oil 1 tab PO DAILY 04/24/24 04/26/24 Unk Multi Vitamin 1 tab PO DAILY 04/24/24 04/26/24 Previous Rx's Medication Instructions Recorded Ketorolac [Toradol] 10 mg PO Q6HR PRN #10 tab 04/26/24 Sulfamethox-Tmp 800-160Mg [Bactrim 1 tab PO Q12HR 7 Days #14 tab 04/27/24 DS 800-160 mg] Allergies Allergy/AdvReac Type Severity Reaction Status Date / Time No Known Allergies Allergy Verified 04/27/24 18:15 Review of Systems ROS Statement: Those systems with pertinent positive or pertinent negative responses have been documented in the HPI. ROS Other: All systems not noted in ROS Statement are negative. Past Medical History Past Medical History: Coronary Artery Disease (CAD), Chest Pain / Angina, Hyperlipidemia, Hypertension, Myocardial Infarction (LA), Osteoarthritis (OA) Additional Past Medical History / Comment(s): LA X2 BACK PAIN., BRUISES EASILY. BPH Last Myocardial Infarction Date:: 05/2013 History of Any Multi-Drug Resistant Organisms: None Reported Past Surgical History: Heart Catheterization With Stent Additional Past Surgical History / Comment(s): laminectomy, vasectomy, Heart Cath x2 -( total of 4 stents 3 stents in 12/2013) Past Anesthesia/Blood Transfusion Reactions: No Reported Reaction Date of Last Stent Placement:: 12/2013 Past Psychological History: No Psychological Hx Reported Smoking Status: Never smoker Past Alcohol Use History: None Reported Past Drug Use History: None Reported - Past Family History Father Family Medical History: Diabetes Mellitus, Myocardial Infarction (LA) Additional Family Medical History / Comment(s): of LA at 50yrs old Mother Additional Family Medical History / Comment(s): Coritical Basilar Ganglionic Degeneration, at 66yrs old Sister(s) Family Medical History: Congestive Heart Failure (CHF) Additional Family Medical History / Comment(s): at 66 of heart failure General Exam Limitations: no limitations General appearance: alert, in no apparent distress Head exam: Present: atraumatic, normocephalic, normal inspection Eye exam: Present: normal appearance, EOMI Neck exam: Present: normal inspection. Absent: meningismus Respiratory exam: Absent: respiratory distress Cardiovascular Exam: Present: regular rate GI/Abdominal exam: Present: soft, distended, tenderness. Absent: guarding, rebound, rigid Neurological exam: Present: alert, oriented X3 Psychiatric exam: Present: normal affect, normal mood Skin exam: Present: warm, dry, normal color Course Vital Signs 04/27/24 04/27/24 04/27/24 18:13 21:33 22:50 Temperature 98.5 F 98.6 F Pulse Rate 56 L 58 L 60 Respiratory 20 18 18 Rate Blood Pressure 105/66 125/78 136/75 O2 Sat by Pulse 97 97 98 Oximetry Medical Decision Making - Medical Decision Making Was pt. sent in by a medical professional or institution (, PA, SWEAT BAND SEPARATOR, urgent care, hospital, or [place] health care facility...) When possible be specific @ -No Did you speak to anyone other than the patient for history (EMS, parent, family, police, friend...)? What history was obtained from this source @ -No Did you review nursing and triage notes (agree or disagree)? Why? @ -I reviewed and agree with nursing and triage notes Were old charts reviewed (outside hosp., previous admission, EMS record, old EKG, old radiological studies, urgent care reports/EKG's, [place] health care facility records)? Report findings @ -No old charts were reviewed Differential Diagnosis (chest pain, altered mental status, abdominal pain women, abdominal pain men, vaginal bleeding, weakness, fever, dyspnea, syncope, headache, dizziness, GI bleed, back pain, seizure, CVA, palpatations, mental health, musculoskeletal)? @ -MDM Differential Abdominal Pain Men: Appendicitis, cholecystitis, diverticulosis, ischemic bowel, pancreatitis, hepatitis, UTI, gastroenteritis, AAA, incarcerated hernia, bowel obstruction, constipation, inflammatory bowel, hepatitis, peptic ulcer disease, splenic infarction, perforated viscus, testicular torsion... This is not meant to be an all-inclusive list EKG interpreted by me (3pts min.). @ -As above X-rays interpreted by me (1pt min.). @ -None done CT interpreted by me (1pt min.). @ -CT shows Delatorre catheter with balloon in appropriate position. Some higher density debris possibly blood products are layering the latter. Additionally catheter tip is buried within the wall which is slightly thickened. Consider advancing Delatorre catheter dislodged to the tip and/or injection of sterile saline to clear any debris. No evidence of perforation or free fluid in the abdomen or pelvis. Moderate hepatic steatosis U/S interpreted by me (1pt. min.). @ -None done What testing was considered but not performed or refused? (CT, X-rays, U/S, labs)? Why? @ -None What meds were considered but not given or refused? Why? @ -None Did you discuss the management of the patient with other professionals (professionals i.e. , PA, SWEAT BAND SEPARATOR, lab, RT, psych nurse, social work specialist, category specialist, teacher, police officer crime prevention, pillowcase cleaner)? Give summary @ -No Was smoking cessation discussed for >3mins.? @ -No Was critical care preformed (if so, how long)? @ -No Were there social determinants of health that impacted care today? How? (Homelessness, low income, unemployed, alcoholism, drug addiction, transportation, low edu. Level, literacy, decrease access to med. care, [facility], rehab)? @ -No Was there de-escalation of care discussed even if they declined (Discuss DNR or withdrawal of care, Hospice)? DNR status @ -No What co-morbidities impacted this encounter? (DM, HTN, Smoking, COPD, CAD, Cancer, CVA, ARF, Chemo, Hep., AIDS, mental health diagnosis, sleep apnea, morbid obesity)? @ -None Was patient admitted / discharged? Hospital course, mention meds given and route, prescriptions, significant lab abnormalities, going to OR and other pertinent info. @ -68-year-old male presenting with chief complaint of abdominal pain. He had a UroLift procedure yesterday. He is concerned that his Delatorre catheter is not draining well. Nurse is able to irrigate without difficulty, bladder scan shows less than 30 mL on multiple occasions. Patient's abdomen is a bit distended. Lab work shows no leukocytosis or anemia. CT shows no evidence of free fluid or free air in the abdomen or pelvis. Urine shows large blood with moderate leukocytes. Out of an abundance of caution will be placed on Bactrim. He follows up with his urologist this week. Follow-up with PCP. Report back to ER with any new or worsening symptoms. Discussed return parameters and answered all questions. Patient conveyed verbal understanding and agreed to the plan. I discussed this case in detail with my attending Dr. Panda Undiagnosed new problem with uncertain prognosis? @ -No Drug Therapy requiring intensive monitoring for toxicity (Heparin, Nitro, Insulin, Cardizem)? @ -No Were any procedures done? @ -No Diagnosis/symptom? @ -Postoperative pain Acute, or Chronic, or Acute on Chronic? @ -Acute Uncomplicated (without systemic symptoms) or Complicated (systemic symptoms)? @ -Uncomplicated Side effects of treatment? @ -No Exacerbation, Progression, or Severe Exacerbation? @ -No Poses a threat to life or bodily function? How? (Chest pain, USA, LA, pneumonia, PE, COPD, DKA, ARF, appy, cholecystitis, CVA, Diverticulitis, Homicidal, Suicidal, threat to staff... and all critical care pts) @ -Unlikely - Lab Data Result diagrams: 04/27/24 20:21 04/27/24 20:21 Lab Results 04/27/24 04/27/24 04/27/24 Range/Units 20:21 20:21 20:21 WBC 10.5 (3.8-10.6) k/uL RBC 4.57 (4.30-5.90) m/uL Hgb 14.4 (13.0-17.5) gm/dL Hct 42.1 (39.0-53.0) % MCV 92.1 (80.0-100.0) fL MCH 31.6 (25.0-35.0) pg MCHC 34.3 (31.0-37.0) g/dL RDW 13.4 (11.5-15.5) % Plt Count 195 (150-450) k/uL MPV 9.4 Neutrophils % 82 % Lymphocytes % 10 % Monocytes % 6 % Eosinophils % 0 % Basophils % 0 % Neutrophils # 8.7 H (1.3-7.7) k/uL Lymphocytes # 1.0 (1.0-4.8) k/uL Monocytes # 0.7 (0-1.0) k/uL Eosinophils # 0.0 (0-0.7) k/uL Basophils # 0.0 (0-0.2) k/uL Sodium 136 L (137-145) mmol/L Potassium 3.3 L (3.5-5.1) mmol/L Chloride 98 (98-107) mmol/L Carbon Dioxide 30 (22-30) mmol/L Anion Gap 8 mmol/L BUN 17 (9-20) mg/dL Creatinine 0.95 (0.66-1.25) mg/dL Est GFR (CKD-EPI)AfAm >90 (>60 ml/min/1.73 sqM) Est GFR (CKD-EPI)NonAf 81 (>60 ml/min/1.73 sqM) Glucose 103 H (74-99) mg/dL Plasma Lactic Acid Solomon 1.4 (0.7-2.0) mmol/L Calcium 9.6 (8.4-10.2) mg/dL Total Bilirubin 0.7 (0.2-1.3) mg/dL AST 43 (17-59) U/L ALT 53 H (4-49) U/L Alkaline Phosphatase 73 (38-126) U/L Total Protein 7.6 (6.3-8.2) g/dL Albumin 4.6 (3.5-5.0) g/dL Urine Color Urine Appearance (Clear) Urine pH (5.0-8.0) Ur Specific [place] (1.001-1.035) Urine Protein (Negative) Urine Glucose (UA) (Negative) Urine Ketones (Negative) Urine Blood (Negative) Urine Nitrite (Negative) Urine Bilirubin (Negative) Urine Urobilinogen (<2.0) mg/dL Ur Leukocyte Esterase (Negative) Urine RBC (0-5) /hpf Urine WBC (0-5) /hpf Urine Bacteria (None) /hpf Urine Mucus (None) /hpf 04/27/24 Range/Units 21:33 WBC (3.8-10.6) k/uL RBC (4.30-5.90) m/uL Hgb (13.0-17.5) gm/dL Hct (39.0-53.0) % MCV (80.0-100.0) fL MCH (25.0-35.0) pg MCHC (31.0-37.0) g/dL RDW (11.5-15.5) % Plt Count (150-450) k/uL MPV Neutrophils % % Lymphocytes % % Monocytes % % Eosinophils % % Basophils % % Neutrophils # (1.3-7.7) k/uL Lymphocytes # (1.0-4.8) k/uL Monocytes # (0-1.0) k/uL Eosinophils # (0-0.7) k/uL Basophils # (0-0.2) k/uL Sodium (137-145) mmol/L Potassium (3.5-5.1) mmol/L Chloride (98-107) mmol/L Carbon Dioxide (22-30) mmol/L Anion Gap mmol/L BUN (9-20) mg/dL Creatinine (0.66-1.25) mg/dL Est GFR (CKD-EPI)AfAm (>60 ml/min/1.73 sqM) Est GFR (CKD-EPI)NonAf (>60 ml/min/1.73 sqM) Glucose (74-99) mg/dL Plasma Lactic Acid Solomon (0.7-2.0) mmol/L Calcium (8.4-10.2) mg/dL Total Bilirubin (0.2-1.3) mg/dL AST (17-59) U/L ALT (4-49) U/L Alkaline Phosphatase (38-126) U/L Total Protein (6.3-8.2) g/dL Albumin (3.5-5.0) g/dL Urine Color Red Urine Appearance Turbid (Clear) Urine pH 5.0 (5.0-8.0) Ur Specific [place] 1.018 (1.001-1.035) Urine Protein 1+ H (Negative) Urine Glucose (UA) Negative (Negative) Urine Ketones Negative (Negative) Urine Blood Large H (Negative) Urine Nitrite Negative (Negative) Urine Bilirubin Negative (Negative) Urine Urobilinogen <2.0 (<2.0) mg/dL Ur Leukocyte Esterase Moderate H (Negative) Urine RBC >182 H (0-5) /hpf Urine WBC 36 H (0-5) /hpf Urine Bacteria Occasional H (None) /hpf Urine Mucus Occasional H (None) /hpf Disposition Clinical Impression: Post-operative pain Disposition: HOME SELF-CARE Condition: Good Additional Instructions: Follow-up with your surgeon. Report back to ER with any new or worsening symptoms. Prescriptions: Sulfamethox-Tmp 800-160Mg [Bactrim DS 800-160 mg] 1 tab PO Q12HR 7 Days #14 tab Is patient prescribed a controlled substance at d/c from ED?: No Referrals: Preston Sauceda MD [Primary Care Provider] - 1-2 days Time of Disposition: 22:42
--- NOTE | 2024-04-27 21:44 | CT ---
EXAMINATION TYPE: CT abdomen pelvis w con DATE OF EXAM: 04/27/2024 9:34 PM COMPARISON: None. CLINICAL INDICATION: Male, 68 years old with history of pain, recent prostate surgery; Pt had procedu re yesterday. Pt has cathether in place. Pt states not draining any more. TECHNIQUE: Axial CT abdomen pelvis w con;Sagittal and coronal reformats were created on a separate w orkstation. Contrast used:100ml mL of Isovue 300 with IV Contrast, (none if empty) Oral contrast used: without Oral Contrast (none if empty) CT DLP: 1192.8 mGycm, Automated exposure control for dose reduction was used. FINDINGS: LOWER CHEST: Unremarkable ABDOMEN LIVER: Diffusely hypoattenuating parenchyma. GALLBLADDER AND BILE DUCTS: Unremarkable. PANCREAS: Unremarkable. SPLEEN: Unremarkable. ADRENAL GLANDS: Unremarkable. KIDNEYS AND URETERS: No evidence of hydronephrosis or renal calculus. The ureters are unremarkable. PELVIS BLADDER: Nondistended with Delatorre catheter in place. Inflatable cuff is within the bladder lumen. The tip is. Within the bladder wall which is thickened. Areas of higher density material posterior to the cuff series 203 image 66 possibly representing blood products. REPRODUCTIVE: Brachytherapy beads are present ABDOMEN & PELVIS STOMACH AND BOWEL: Moderate stool throughout the colon. No evidence of bowel obstruction. PERITONEUM/RETROPERITONEUM: No evidence of pneumoperitoneum or free fluid. VASCULATURE: Mild atherosclerotic calcifications are present throughout the abdominal aorta and its b ranches. No evidence of aortic aneurysm. MUSCULOSKELETAL: No acute osseous abnormalities. Mild disc degeneration changes are present throughou t the thoracolumbar spine. LYMPH NODES: No gross evidence for lymphadenopathy. SOFT TISSUE/ABDOMINAL WALL: Unremarkable IMPRESSION: 1. Delatorre catheter with balloon in appropriate position. Some higher density debris possibly blood pr oducts are layering the latter. Additionally, Catheter tip is buried within the wall which is slightl y thickened. Consider advancing Delatorre catheter to dislodge the tip and/or injection of sterile saline to clear any debris. No evidence of perforation or free fluid in the abdomen/pelvis. 2. Moderate hepatic steatosis. [facility], , 04/27/2024 9:42 PM
[2024-04-27 22:35] LABS: Appearance,Urine Turbid (Clear); Bacteria,Urine Occasional /hpf; Bilirubin,Urine Negative (Negative); Blood,Urine Large (Negative); Color,Urine Red; Glucose,Urine (UA) Negative (Negative); Ketones,Urine Negative (Negative); Leukocyte Esterase,Urine Moderate (Negative); Mucus,Urine Occasional /hpf; Nitrite,Urine Negative (Negative); Protein,Urine 1+ (Negative); RBC,Urine >182 /hpf (0-5); Specific Gravity,Urine 1.018 (1.001-1.035); Urobilinogen,Urine <2.0 mg/dL (<2.0); WBC,Urine 36 /hpf (0-5)
[2024-04-27 22:51] VITALS: BP 136/75; PULSE 60; TEMP 98.6
== END 2024-04-27 22:53 | disposition home or self-care (01) ==
LOC: EC 17:25
DX: G89.18 Other acute postprocedural pain (principal)
CPT/HCPCS: 36415; 80053; 83605; 85025; 81001; 87086; 74177; 99284; 96374; J2270; Q9967

== ENCOUNTER → 2024-06-19 | Outpatient (CLI) | payer MEDICARE ==
--- NOTE | 2024-06-19 11:35 | XR ---
EXAMINATION TYPE: XR lumbar spine 2 or 3V DATE OF EXAM: 06/19/2024 CLINICAL HISTORY: pain TECHNIQUE: Three views of the lumbar spine are submitted. COMPARISON: CT abdomen and pelvis 04/27/2024 FINDINGS: There are 5 lumbar type vertebral bodies identified. No acute fracture or dislocation. Grade 1 retrol isthesis of L4 on L5. Vertebral body heights are within normal limits. Multilevel facet arthropathy. Multilevel disc space narrowing with endplate sclerosis and anterior osteophytosis. Large anterior o steophyte at L5-S1. The overlying soft tissue appears unremarkable. Atherosclerotic calcification of the aorta. IMPRESSION: 1. No acute fracture or dislocation is seen in the lumbar spine. 2. Moderate multilevel degenerative disc disease and facet arthropathy. 3. Grade 1 retrolisthesis of L4 on L5. [facility], , 06/19/2024 11:32 AM
== END | disposition home or self-care (01) ==
LOC: RADXRMAIN 10:52
PROVIDERS: ATTEND Internal Medicine
DX: M51.360 Other intervertebral disc degeneration, lumbar region with discogenic back pain only (principal); M47.816 Spondylosis without myelopathy or radiculopathy, lumbar region; M43.16 Spondylolisthesis, lumbar region
CPT/HCPCS: 72100

== ENCOUNTER → 2024-07-26 | Outpatient (CLI) | payer MEDICARE ==
--- NOTE | 2024-07-26 10:07 | XR ---
EXAMINATION TYPE: XR cervical spine comp DATE OF EXAM: 07/26/2024 10:03 AM COMPARISON: None CLINICAL INDICATION: Male, 68 years old with history of M50.30 cervical disc degeneration; PHH, pain TECHNIQUE: The cervical spine was imaged in frontal, lateral, odontoid and bilateral oblique. FINDINGS: The osseous structures show normal alignment without evidence of an acute fracture. There are osteoph ytes noted throughout the cervical spine on the anterior and lateral aspects of the vertebral bodies. The intervertebral disk spaces are narrowed at multiple levels. Pedicles are intact. Soft tissues a re within normal limits. The odontoid appears intact. IMPRESSION: 1. No fracture or dislocation. 2. Moderate degenerative disc disease changes of the cervical spine. [facility], , 07/26/2024 10:04 AM
== END | disposition home or self-care (01) ==
LOC: RADXRMAIN 09:41
PROVIDERS: ATTEND Internal Medicine
DX: M50.30 Other cervical disc degeneration, unspecified cervical region (principal)
CPT/HCPCS: 72050

== ENCOUNTER → 2024-07-26 | Outpatient (CLI) | payer MEDICARE ==
[2024-07-26 15:36] LABS: LDL Cholesterol,Calculated 66.4 mg/dL (0.0-131.0)
[2024-07-26 15:37] LABS: ALT 41 U/L (10-49); AST 38 U/L (14-35); Albumin 4.5 g/dL (3.8-4.9); Albumin/Globulin Ratio 1.61 Ratio (1.60-3.17); Alkaline Phosphatase 67 U/L (41-126); Calcium 9.7 mg/dL (8.7-10.3); Carbon Dioxide 26.7 mmol/L (21.6-31.8); Chloride 104 mmol/L (96-109); Globulin 2.8 g/dL (1.6-3.3); Glucose 98 mg/dL (70-110); Potassium 4.5 mmol/L (3.5-5.5); Sodium 140 mmol/L (135-145); Total Bilirubin 0.5 mg/dL (0.3-1.2); Total Protein 7.3 g/dL (6.2-8.2)
== END | disposition home or self-care (01) ==
LOC: LABWHC1 09:21
PROVIDERS: ATTEND Internal Medicine Interventional Cardiology
DX: E78.2 Mixed hyperlipidemia (principal)
CPT/HCPCS: 36415; 80053; 80061